=== PATIENT | female | born 1960 | race Caucasian/White ===

== ENCOUNTER → 2018-04-01 | Outpatient (CLI) | payer OTHER ==
[~2018-04-01] MED LIST: ASCO-96 PO; ASPI-496 PO; ATEN100T PO; COLL1POW2 PO; ESTR1TAB15 PO; LACT1CAP37 PO; LOSA25TA6 PO; LOVA20TA2 PO; MELA1TAB6 PO; MULT-224 PO; MV,I66.7 PO; TRIA15CR2 TD; UBID100C41 PO; VITAL REDS PO; [UNRECOGNIZED DRUG - OTHER] PO; [UNRECOGNIZED DRUG - OTHER] PO
[2018-04-01 10:34] LABS: BASOPHILS # (AUTO) 0.03 x10^3/uL (0-0.1); BASOPHILS % (AUTO) 0 % (0-1); EOSINOPHILS # (AUTO) 0.22 x10^3/uL (0-0.4); EOSINOPHILS % (AUTO) 3 % (1-7); LYMPHOCYTES # (AUTO) 2.05 x10^3/uL (1-3.4); LYMPHOCYTES % (AUTO) 25 % (22-44); MD NO; MEAN CORPUSCULAR HGB CONC 34.5 g/dL (32.4-35.8); MEAN CORPUSCULAR VOLUME 92.7 fL (80-100); MEAN PLATELET VOLUME 6.7 fL (7.4-10.4); MONOCYTES # (AUTO) 0.64 x10^3/uL (0.2-0.8); MONOCYTES % (AUTO) 8 % (2-9); NEUTROPHILS # (AUTO) 5.13 x10^3/uL (1.8-6.8); NEUTROPHILS % (AUTO) 64 % (42-75); PLATELET COUNT 326 x10^3/uL (130-400); RED BLOOD COUNT 4.95 x10^6/uL (3.82-5.3); RED CELL DISTRIBUTION WIDTH 12.1 % (9.6-15.2)
[2018-04-01 10:46] LABS: ALBUMIN 3.9 g/dL (3.4-5.0); ANION GAP 7 mmol/L (5-15); CALCIUM 9.6 mg/dL (8.5-10.1); CHLORIDE 105 mmol/L (98-107); CHOLESTEROL, TOTAL 177 mg/dL (140-239); TOTAL IRON BINDING CAPACITY 380 mcg/dL (250-450); TRIGLYCERIDES 206 mg/dL (50-200); VLDL CHOLESTEROL 41 mg/dL (0-25)
[2018-04-01 11:04] LABS: % IRON SATURATION 28 % (20-55); ALANINE AMINOTRANSFERASE 35 U/L (12-78); ALKALINE PHOSPHATASE 87 U/L (45-117); BILIRUBIN,TOTAL 0.4 mg/dL (0.2-1.0); HDL CHOL % 33 % (28-40); HDL CHOLESTEROL (DIRECT) 59 mg/dL (40-60); IRON LEVEL 108 mcg/dL (50-170); LDL CHOLESTEROL,CALCULATED 77 mg/dL (54-169); LDL/HDL RATIO 1.3 (0.5-3.0); PREALBUMIN 28.4 mg/dL (20.0-40.0); TOTAL PROTEIN 7.8 g/dL (6.4-8.2); TRANSFERRIN 306 mg/dL (200-360)
[2018-04-01 11:06] LABS: FOLATE LEVEL > 20.0 ng/mL (3.1-17.5)
== END | disposition home or self-care (01) ==
LOC: STAR 09:10
PROVIDERS: ATTEND Thoracic Surgery (Cardiothoracic Vascular Surgery)
DX: Z01.818 Encounter for other preprocedural examination (principal)
CPT/HCPCS: 36415; 71046; 80053; 80061; 82306; 82728; 82746; 83540; 83550; 83970; 84134; 84425; 84466; 85025; 93005

== ENCOUNTER 2018-04-11 10:04 | Inpatient (IN) | payer OTHER ==
[~2018-04-11] VITALS: Ht 162.6 cm; Wt 99.5 kg
[2018-04-11] MEDS ORDERED: ONDANSETRON ODT 4 MG PO ONE (10:30)
[2018-04-11 11:11] LABS: BASOPHILS # (AUTO) 0.07 x10^3/uL (0-0.1); BASOPHILS % (AUTO) 1 % (0-1); EOSINOPHILS # (AUTO) 0.05 x10^3/uL (0-0.4); EOSINOPHILS % (AUTO) 1 % (1-7); LYMPHOCYTES # (AUTO) 1.63 x10^3/uL (1-3.4); LYMPHOCYTES % (AUTO) 16 % (22-44); MD NO; MEAN CORPUSCULAR HEMOGLOBIN 31.8 pg (27.0-34.8); MEAN CORPUSCULAR HGB CONC 34.2 g/dL (32.4-35.8); MEAN CORPUSCULAR VOLUME 92.9 fL (80-100); MEAN PLATELET VOLUME 6.8 fL (7.4-10.4); MONOCYTES # (AUTO) 1.14 x10^3/uL (0.2-0.8); MONOCYTES % (AUTO) 11 % (2-9); NEUTROPHILS # (AUTO) 7.27 x10^3/uL (1.8-6.8); NEUTROPHILS % (AUTO) 72 % (42-75); PLATELET COUNT 358 x10^3/uL (130-400); RED CELL DISTRIBUTION WIDTH 12.1 % (9.6-15.2)
[2018-04-11 11:21] LABS: ALANINE AMINOTRANSFERASE 68 U/L (12-78); ALBUMIN 3.8 g/dL (3.4-5.0); ANION GAP 6 mmol/L (5-15); CALCIUM 8.7 mg/dL (8.5-10.1); CHLORIDE 105 mmol/L (98-107); CREATININE 0.78 mg/dL (0.55-1.02)
[2018-04-11 11:24] LABS: ALKALINE PHOSPHATASE 65 U/L (45-117); BILIRUBIN,TOTAL 0.8 mg/dL (0.2-1.0); TOTAL PROTEIN 7.7 g/dL (6.4-8.2)
[2018-04-11] MEDS ORDERED: ONDANSETRON ODT 4 MG ONE (11:28)
[2018-04-11] MEDS ORDERED: SODIUM CHLORIDE 0.9% 1,000ML IVBOLUS ONE (12:00)
[2018-04-11] MEDS ORDERED: ONDANSETRON 2MG/ML, 2ML IVPush ONE (12:00)
[2018-04-11] MEDS ORDERED: SODIUM CHLORIDE FLUSH 10ML SYR IVF ONE (12:00)
[2018-04-11] MEDS ORDERED: PROMETHAZINE 25 MG SUPP PR ONE ×2 (12:00→14:30)
[2018-04-11] MEDS ORDERED: ONDANSETRON 2MG/ML, 2ML ONE (12:21)
[2018-04-11] MEDS ORDERED: HYDROmorphone 2 MG/ML, 1ML IVPush PRN (13:30)
[2018-04-11] MEDS ORDERED: ENALAPRILAT 1.25 MG/ML, 2ML IVPush PRN (14:00)
[2018-04-11] MEDS ORDERED: ONDANSETRON 2MG/ML, 2ML IVPush PRN (14:00)
[2018-04-11] MEDS ORDERED: PROMETHAZINE 25 MG/ML, 1ML IM ONE (14:00)
[2018-04-11] MEDS ORDERED: ACETAMINOPHEN 120 MG SUPP PR ONE (14:00)
[2018-04-11] MEDS ORDERED: SUMATRIPTAN 6MG/0.5ML SQ ONE ×2 (14:00→14:29)
[2018-04-11] MEDS ORDERED: BUTALB/APAP/CAFFEINE 50MG/325MG/40MG PO PRN (14:00)
[2018-04-11] MEDS ORDERED: HYDROmorphone 2 MG/ML, 1ML ONE (14:24)
[2018-04-11] MEDS ORDERED: ACETAMINOPHEN 650 MG SUPP ONE (14:29)
[2018-04-11 14:56] VITALS: BP 169/94
[2018-04-11 15:00] VITALS: BP 169/94
[2018-04-11] MEDS ORDERED: SUMATRIPTAN 100 MG TABLET PO PRN (16:00)
[2018-04-11] MEDS: D5%-0.45NACL+KCL 20MEQ 1,000 ML IV SCH (16:12)
[2018-04-11] MEDS: PANTOPRAZOLE 40 MG IV IVPush SCH ×2 (16:13→20:41)
[2018-04-11 18:56] VITALS: BP 146/85
[2018-04-11] MEDS: PROMETHAZINE 25 MG/ML, 1ML IM PRN (20:42)
[2018-04-11] MEDS: ACETAMINOPHEN 650 MG SUPP PR PRN (23:17)
[2018-04-11] MEDS: SUMATRIPTAN 6MG/0.5ML SQ PRN (23:34)
[2018-04-12 00:28] VITALS: BP 149/86
[2018-04-12] MEDS: D5%-0.45NACL+KCL 20MEQ 1,000 ML IV SCH ×3 (00:49→23:44)
[2018-04-12 05:13] LABS: BASOPHILS # (AUTO) 0.04 x10^3/uL (0-0.1); BASOPHILS % (AUTO) 0 % (0-1); EOSINOPHILS # (AUTO) 0.24 x10^3/uL (0-0.4); EOSINOPHILS % (AUTO) 3 % (1-7); LYMPHOCYTES # (AUTO) 2.34 x10^3/uL (1-3.4); LYMPHOCYTES % (AUTO) 25 % (22-44); MD NO; MEAN CORPUSCULAR HEMOGLOBIN 31.5 pg (27.0-34.8); MEAN CORPUSCULAR HGB CONC 33.9 g/dL (32.4-35.8); MEAN PLATELET VOLUME 6.9 fL (7.4-10.4); MONOCYTES # (AUTO) 1.14 x10^3/uL (0.2-0.8); MONOCYTES % (AUTO) 12 % (2-9); NEUTROPHILS # (AUTO) 5.82 x10^3/uL (1.8-6.8); NEUTROPHILS % (AUTO) 61 % (42-75); PLATELET COUNT 305 x10^3/uL (130-400); RED BLOOD COUNT 4.61 x10^6/uL (3.82-5.3); RED CELL DISTRIBUTION WIDTH 11.9 % (9.6-15.2)
[2018-04-12 05:22] LABS: ANION GAP 8 mmol/L (5-15); CALCIUM 7.8 mg/dL (8.5-10.1); CHLORIDE 105 mmol/L (98-107)
[2018-04-12 05:23] LABS: CREATININE 0.62 mg/dL (0.55-1.02)
[2018-04-12 06:56] VITALS: BP 176/106
[2018-04-12] MEDS ORDERED: POTASSIUM CHLORIDE 40 MEQ in SODIUM CHLORIDE 0.9% 500 ML IV ONE (07:00)
[2018-04-12] MEDS: hydrALAzine 20 MG/ML, 1ML IVPush PRN (07:55)
[2018-04-12] MEDS: ACETAMINOPHEN 650 MG SUPP PR PRN ×2 (07:55→14:56)
[2018-04-12] MEDS: PANTOPRAZOLE 40 MG IV IVPush SCH ×2 (07:55→20:24)
[2018-04-12] MEDS: PROMETHAZINE 25 MG/ML, 1ML IM PRN ×3 (10:27→20:25)
[2018-04-12] MEDS: HYDROmorphone 2 MG/ML, 1ML IVPush PRN ×3 (10:27→21:28)
[2018-04-12] MEDS: METOCLOPRAMIDE 5 MG/ML, 2ML IVPush SCH ×3 (11:45→23:43)
[2018-04-12] MEDS: SUMATRIPTAN 6MG/0.5ML SQ PRN ×2 (11:59→18:29)
[2018-04-12 14:07] VITALS: BP 137/78
[2018-04-12] MEDS: MAALOX/HYOSCYAMINE/LIDOCAINE 45 ML BTL PO PRN (14:14)
[2018-04-12] MEDS: OXYMETAZOLINE NASAL SPRAY 0.05%, 15ML NAS SCH ×2 (14:23→23:44)
[2018-04-12 19:37] VITALS: BP 139/86
[2018-04-13 01:09] VITALS: BP 143/90
[2018-04-13] MEDS: HYDROmorphone 2 MG/ML, 1ML IVPush PRN (01:22)
[2018-04-13] MEDS: ACETAMINOPHEN 650 MG SUPP PR PRN (01:23)
[2018-04-13] MEDS: MAALOX/HYOSCYAMINE/LIDOCAINE 45 ML BTL PO PRN ×3 (02:26→22:18)
[2018-04-13] MEDS: SUMATRIPTAN 6MG/0.5ML SQ PRN ×2 (04:21→15:00)
[2018-04-13] MEDS: METOCLOPRAMIDE 5 MG/ML, 2ML IVPush SCH ×4 (05:54→23:41)
[2018-04-13 06:58] VITALS: BP 130/71
[2018-04-13] MEDS: PANTOPRAZOLE 40 MG IV IVPush SCH ×2 (08:49→20:05)
[2018-04-13] MEDS: OXYMETAZOLINE NASAL SPRAY 0.05%, 15ML NAS SCH (08:49)
[2018-04-13 09:29] LABS: ANION GAP 5 mmol/L (5-15); CALCIUM 7.4 mg/dL (8.5-10.1); CHLORIDE 107 mmol/L (98-107); CREATININE 0.66 mg/dL (0.55-1.02)
[2018-04-13] MEDS ORDERED: PANTOPROZOLE 40MG TABLET PO SCH (09:30)
[2018-04-13] MEDS: ATENOLOL 100 MG TABLET PO SCH (09:44)
[2018-04-13] MEDS: LOSARTAN 25MG TABLET PO SCH (09:44)
[2018-04-13] MEDS: D5%-0.45NACL+KCL 20MEQ 1,000 ML IV SCH ×2 (09:44→20:04)
[2018-04-13] MEDS: ASPIRIN 81 MG TABLET CHEW PO SCH (09:44)
[2018-04-13 12:02] VITALS: BP 144/90
[2018-04-13] MEDS ORDERED: PANT40TA5 PO (12:34)
[2018-04-13] MEDS: PROMETHAZINE 25 MG/ML, 1ML IM PRN (16:43)
[2018-04-13 18:50] VITALS: BP 132/80
[2018-04-13] MEDS ORDERED: LOVASTATIN 20 MG TABLET PO SCH (21:00)
[2018-04-14 03:45] VITALS: BP 163/91
[2018-04-14] MEDS: hydrALAzine 20 MG/ML, 1ML IVPush PRN (03:48)
[2018-04-14] MEDS: METOCLOPRAMIDE 5 MG/ML, 2ML IVPush SCH ×3 (05:31→17:28)
[2018-04-14] MEDS: D5%-0.45NACL+KCL 20MEQ 1,000 ML IV SCH ×2 (06:15→14:18)
[2018-04-14 06:32] VITALS: BP 130/82
[2018-04-14] MEDS: PANTOPRAZOLE 40 MG IV IVPush SCH ×2 (07:32→19:12)
[2018-04-14] MEDS: ASPIRIN 81 MG TABLET CHEW PO SCH (09:39)
[2018-04-14] MEDS: ATENOLOL 100 MG TABLET PO SCH (09:39)
[2018-04-14] MEDS: LOSARTAN 25MG TABLET PO SCH (09:39)
[2018-04-14] MEDS ORDERED: CALCIUM CARBONATE 500 MG TAB.CHEW PO PRN (10:30)
[2018-04-14 12:17] VITALS: BP 116/71
[2018-04-14] MEDS: KETOROLAC 30 MG/1 ML IVPush SCH ×2 (14:17→19:12)
[2018-04-14 19:01] VITALS: BP 149/96
== END 2018-04-14 19:30 | disposition home or self-care (01) | DRG 394 ==
LOC: ED 13:42 → EDIP 13:43 → ED 13:45 → 4NOR 15:01
PROVIDERS: ADMIT Hospitalist; ATTEND Hospitalist
DX: K95.89 Other complications of other bariatric procedure (principal); D72.829 Elevated white blood cell count, unspecified; E78.5 Hyperlipidemia, unspecified; G43.909 Migraine, unspecified, not intractable, without status migrainosus; G44.209 Tension-type headache, unspecified, not intractable; K56.7 Ileus, unspecified; K91.89 Other postprocedural complications and disorders of digestive system; G47.33 Obstructive sleep apnea (adult) (pediatric); Y84.8 Other medical procedures as the cause of abnormal reaction of the patient, or of later complication, without mention of misadventure at the time of the procedure; I10 Essential (primary) hypertension; K21.9 Gastro-esophageal reflux disease without esophagitis; Z82.5 Family history of asthma and other chronic lower respiratory diseases; Z98.84 Bariatric surgery status; Z90.49 Acquired absence of other specified parts of digestive tract
CPT/HCPCS: 36415; 74021; 74241; 80048; 80053; 83735; 85025; 96361; 96372; 96374; 99285; G0378; J1170; J1885; J2405; J2550; J3480; C9113; J0360; J2765; J3030; J7030; J7040